=== PATIENT | male | born 1970 | race Caucasian/White ===

== ENCOUNTER 2022-12-16 07:54 | Day surgery (SDC) | payer OTHER ==
[2022-12-14 15:36] VITALS: BMI 31.9
[2022-12-16] MEDS ORDERED: BUPIVACAINE HCL/EPINEPHRINE/PF 30 ML VIAL IJ ONE (08:55)
[2022-12-16] MEDS ORDERED: BUPIVACAINE HCL/PF 0.25% (2.5MG/ML) 10 ML VIAL ONE (08:55)
[2022-12-16] MEDS ORDERED: LIDOCAINE HCL/PF 2% SDV 5ML VIAL ONE (09:26)
[2022-12-16] MEDS ORDERED: MIDAZOLAM HCL 2 MG/2 ML SINGLE DOSE VIAL ONE (09:26)
[2022-12-16] MEDS ORDERED: PROPOFOL 20 ML ONE (09:26)
[2022-12-16] MEDS ORDERED: ONDANSETRON 4 MG/2 ML VIAL ONE (09:57)
[2022-12-16] MEDS ORDERED: KETOROLAC TROMETHAMINE 30 MG/1 ML VIAL ONE (09:57)
[2022-12-16] MEDS ORDERED: ceFAZolin SODIUM 1 GM VIAL ONE (09:57)
[2022-12-16] MEDS ORDERED: DEXAMETHASONE SOD PHOSPHATE 4 MG/1 ML VIAL ONE (09:57)
[2022-12-16] MEDS ORDERED: FENTANYL CITRATE/PF 50 MCG/ML VIAL ONE (11:01)
[2022-12-16] MEDS ORDERED: PROMETHAZINE HCL 25 MG/1 ML VIAL IVPB PRN (11:02)
[2022-12-16] MEDS ORDERED: ONDANSETRON 4 MG/2 ML VIAL IVPUSH PRN (11:02)
[2022-12-16] MEDS ORDERED: ACETAMINOPHEN 1000 MG/100 ML BAG IVPB ONE (11:02)
[2022-12-16] MEDS ORDERED: oxyCODONE HCL 5 MG TABLET PO PRN ×2 (11:02)
[2022-12-16] MEDS ORDERED: LACTATED RINGERS SOLUTION 1,000 ML IV SCH (11:15)
[2022-12-16] MEDS ORDERED: oxyCODONE HCL 5 MG TABLET ONE (12:13)
[2022-12-16] MEDS ORDERED: oxyCODONE HCL 5 MG TABLET PO ONE (12:15)
[2022-12-16 12:31] VITALS: RESP 16; TEMP 98.3
[2022-12-16 12:47] VITALS: BP 133/87; PULSE 81
== END 2022-12-16 13:20 | disposition home or self-care (01) ==
LOC: FASU 07:54
PROVIDERS: ATTEND Orthopaedic Surgery
PROC: 0SBD4ZZ Excision of Left Knee Joint, Percutaneous Endoscopic Approach (ICD-10-PCS; principal; 2022-12-16 10:17)
DX: S83.242A Other tear of medial meniscus, current injury, left knee, initial encounter (principal); M94.262 Chondromalacia, left knee; M65.9 Synovitis and tenosynovitis, unspecified; X58.XXXA Exposure to other specified factors, initial encounter; Y93.9 Activity, unspecified; Y92.9 Unspecified place or not applicable
CPT/HCPCS: 94760